=== PATIENT | male | born 1945 | race American Indian/Alaskan Native ===

== ENCOUNTER 2021-12-07 10:14 | Outpatient (CLI) | payer MEDICARE ==
--- NOTE | 2021-12-07 15:48 | Ultrasound Report ---
ULTRASOUND ABDOMEN, LIMITED INDICATION / CLINICAL INFORMATION: R94.5 ABNORMAL RESULTS OF LIVER FUNCTION STUDIES. COMPARISON: None available. FINDINGS: PANCREAS: Visualized portion shows no significant abnormality. AORTA: No significant abnormality. IVC: No significant abnormality. LIVER: The liver is enlarged measuring 18.1 cm with diffusely heterogeneous appearance. Normal hepato pedal blood flow within the main portal vein. GALLBLADDER: The gallbladder is filled with stones limiting evaluation. No evidence of significant wa ll thickening or pericholecystic fluid. BILE DUCTS: No significant abnormality. Common bile duct measures 3 mm. RIGHT KIDNEY: The right kidney measures 11.9 cm. No significant abnormality. FREE FLUID: None. ADDITIONAL FINDINGS: None. IMPRESSION: 1. Hepatomegaly with diffusely heterogeneous appearance of the liver, most commonly seen with steatos is. 2. Cholelithiasis without evidence of acute cholecystitis. Scribed by: Yue Cedeño RDMS Rigoberto Scribed: 12/07/2021 11:50 AM I have reviewed the images, agree with this report, and edited this report as needed. Signer Name: Garry Gonzáles MD Signed: 12/07/2021 3:44 PM Workstation Name: [id number]
== END 2021-12-07 10:15 | disposition home or self-care (01) ==
LOC: US 10:14
PROVIDERS: ATTEND Internal Medicine
DX: K80.20 Calculus of gallbladder without cholecystitis without obstruction (principal); R16.0 Hepatomegaly, not elsewhere classified; R94.5 Abnormal results of liver function studies
CPT/HCPCS: 76705

== ENCOUNTER 2021-12-18 10:21 | Outpatient (CLI) | payer MEDICARE ==
[2021-12-18 11:44] LABS: Blood Urea Nitrogen 14 mg/dL (9-20)
--- NOTE | 2021-12-18 13:35 | Cat Scan Report ---
CT ABDOMEN AND PELVIS WITHOUT AND WITH IV CONTRAST INDICATION: CHOLESTATIC JAUNDICE SYNDROME OMNI 300 100ML. COMPARISON: Right upper quadrant ultrasound 11 days prior. TECHNIQUE: All CT scans at this location are performed using CT dose reduction for ALARA by means of automated e xposure control. Axial CT images were obtained through the abdomen and pelvis before and after IV contrast. FINDINGS: Lung Bases: Pulmonary fibrosis is noted in the included lower lungs. Skeletal System: No acute abnormality. ABDOMEN: Liver: The liver is somewhat diffusely hypodense consistent with steatosis. The liver has a somewhat nodular contour suggestive of cirrhosis. Portal vein is patent. No focal lesions. Gallbladder: Punctate gallstones are noted in the gallbladder, which is contracted. Bile Ducts: No significant abnormality. Adrenals: No significant abnormality. Right Kidney and Proximal Ureter: No significant abnormality. Left Kidney and Proximal Ureter: No significant abnormality. Pancreas: No significant abnormality. Spleen: No significant abnormality. Stomach and Bowel: No significant abnormality. Lymph Nodes: No significant adenopathy. Aorta: No significant abnormality. IVC: No significant abnormality. Additional Findings: There is trace perihepatic fluid. PELVIS: Urinary Bladder and Distal Ureters: No significant abnormality. Appendix: No significant abnormality. Colon: There is mild right-sided diverticulosis. Free Fluid: There is mild ascites in the pelvis. Lymph Nodes: No significant adenopathy. Additional Findings: None. IMPRESSION: 1. The liver has a somewhat cirrhotic configuration and there is mild ascites. No biliary dilatation. 2. Cholelithiasis. 3. 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 Signer Name: Alfred Preston MD Signed: 12/18/2021 1:31 PM Workstation Name: [id number]
== END 2021-12-18 10:22 | disposition home or self-care (01) ==
LOC: CT 10:21
PROVIDERS: ATTEND Internal Medicine
DX: K80.20 Calculus of gallbladder without cholecystitis without obstruction (principal); R17 Unspecified jaundice; J90 Pleural effusion, not elsewhere classified; K57.30 Diverticulosis of large intestine without perforation or abscess without bleeding; R18.8 Other ascites
CPT/HCPCS: 36415; 74178; 82565; 84520; Q9967